=== PATIENT | male | born 1945 | race Caucasian/White ===

== ENCOUNTER 2018-11-17 01:49 | Emergency (ER) | payer MEDICARE, OTHER ==
[2018-11-17] MEDS ORDERED: Sodium Bicarb 50 MEQ/50 ML Abboject 8.4% SYRINGE ONE (02:00)
[2018-11-17] MEDS ORDERED: EPINEPHrine 1 mg/ml MDV (1ml Charge) ONE (02:00)
[2018-11-17] MEDS ORDERED: Calcium Chloride 1 GM/10 ML Abboject SYRINGE ONE (02:00)
[2018-11-17] MEDS ORDERED: Amiodarone 150 MG/3 ML VIAL ONE (02:00)
[2018-11-17] MEDS ORDERED: Sodium Chloride 0.9% 2,000 ML ONE (02:05)
[2018-11-17] MEDS ORDERED: Sodium Chloride 0.9% 1,000 ML ONE (02:25)
== END 2018-11-17 03:28 | disposition expired ==
LOC: MADERS 01:49
DX: I46.9 Cardiac arrest, cause unspecified (principal)
CPT/HCPCS: 99285; J0171; J0282; J7050